=== PATIENT | female | born 1985 | race American Indian/Alaskan Native ===

== ENCOUNTER 2017-05-02 06:27 | Emergency (ER) | payer SELFPAY ==
[2017-05-02 07:24] LABS: Basophils % (Auto) 0.2 % (0.0-1.8); Eosinophils % (Auto) 0.4 % (0.0-4.3); Hemoglobin 13.8 gm/dl (10.1-14.3); Mean Corpuscular HGB Conc 33 % (30-34); Mean Corpuscular Hemoglobin 30 pg (28-32); Mean Corpuscular Volume 91 fl (79-97); Platelet Count 304 K/mm3 (140-440); Red Blood Count 4.64 M/mm3 (3.65-5.03); Red Cell Distribution Width 12.5 % (13.2-15.2); White Blood Count 8.3 K/mm3 (4.5-11.0)
[2017-05-02 07:31] LABS: Bilirubin,Urine NEG (Negative); Blood,Urine LG (Negative); Ketones,Urine TR mg/dL (Negative); Leukocyte Esterase,Urine TR (Negative); Mucus,Urine 3+ /HPF; Nitrite,Urine NEG (Negative)
[2017-05-02 07:32] LABS: RBC,Urine > 182.0 /HPF (0.0-6.0)
[2017-05-02 07:37] LABS: Alanine Aminotransferase 11 units/L (7-56); Albumin 4.3 g/dL (3.9-5); Albumin/Globulin Ratio 1.5 %; Alkaline Phosphatase 57 units/L (35-129); Anion Gap 16 mmol/L; BUN/Creatinine Ratio 8.88; Blood Urea Nitrogen 8 mg/dL (7-17); Calcium 9.2 mg/dL (8.4-10.2); Carbon Dioxide 29 mmol/L (22-30); Chloride 101.6 mmol/L (98-107); Glucose 107 mg/dL (65-100); Lipase 22 units/L (13-60); Potassium 4.7 mmol/L (3.6-5.0); Sodium 142 mmol/L (137-145); Total Protein 7.2 g/dL (6.3-8.2)
[2017-05-02] MEDS ORDERED: ZOFRAN ONE (08:16)
[2017-05-02] MEDS ORDERED: ZOFRAN IV ONE (09:00)
[2017-05-02] MEDS ORDERED: TORADOL IV ONE (10:17)
[2017-05-02] MEDS ORDERED: NACL 0.9% 1000 ML 1,000 ML IV ONE (10:17)
[2017-05-02] MEDS ORDERED: MORPHINE IV ONE (10:17)
--- NOTE | 2017-05-02 10:20 | Emergency Department Report ---
<DAR KIMBALL - Last Filed: 05/02/17 11:26> ED Abdominal Pain HPI - General Chief Complaint: Abdominal Pain Stated Complaint: LOWER ABD AND BACK PAIN Time Seen by Provider: 05/02/17 10:08 - Related Data Previous Rx's Medication Instructions Recorded Last Taken Type Bacitracin/Polymyxin B Sulfate 28 gm TP BID #1 oint...g. 07/20/16 Unknown Rx [[facility] Bacitracin Ointmnt] Cephalexin [Keflex] 500 mg PO Q12HR #14 cap 07/20/16 Unknown Rx Ibuprofen [Motrin] 600 mg PO Q8H PRN #20 tablet 07/20/16 Unknown Rx Ciprofloxacin HCl [Ciprofloxacin 500 mg PO Q12H #10 tab 05/02/17 Unknown Rx TAB] Ondansetron [Zofran Odt] 4 mg PO Q6H PRN #10 tab.rapdis 05/02/17 Unknown Rx traMADol [Ultram] 50 mg PO Q6HR PRN #10 tablet 05/02/17 Unknown Rx Allergies Allergy/AdvReac Type Severity Reaction Status Date / Time codeine Allergy Unknown Verified 05/02/17 06:37 ED Review of Systems ROS: Stated complaint: LOWER ABD AND BACK PAIN Other details as noted in HPI ED Past Medical Hx - Medications Home Medications: Home Medications Medication Instructions Recorded Confirmed Last Taken Type Bacitracin/Polymyxin B Sulfate 28 gm TP BID #1 oint...g. 07/20/16 Unknown Rx [[facility] Bacitracin Ointm[facility]] Cephalexin [Keflex] 500 mg PO Q12HR #14 cap 07/20/16 Unknown Rx Ibuprofen [Motrin] 600 mg PO Q8H PRN #20 tablet 07/20/16 Unknown Rx Ciprofloxacin HCl [Ciprofloxacin 500 mg PO Q12H #10 tab 05/02/17 Unknown Rx TAB] Ondansetron [Zofran Odt] 4 mg PO Q6H PRN #10 tab.rapdis 05/02/17 Unknown Rx traMADol [Ultram] 50 mg PO Q6HR PRN #10 tablet 05/02/17 Unknown Rx ED Course Vital Signs 05/02/17 05/02/17 05/02/17 06:37 07:50 10:52 Temperature 98 F Pulse Rate 82 Respiratory 18 18 20 Rate Blood Pressure 134/68 O2 Sat by Pulse 100 100 Oximetry 05/02/17 05/02/17 05/02/17 10:53 11:22 11:23 Temperature Pulse Rate Respiratory 18 16 16 Rate Blood Pressure O2 Sat by Pulse Oximetry ED Medical Decision Making - Lab Data Result diagrams: 05/02/17 06:56 05/02/17 06:56 - Medical Decision Making I have seen and examined this patient myself. 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 Itz Kimball Critical care attestation.: If time is entered above; I have spent that time in minutes in the direct care of this critically ill patient, excluding procedure time. ED Disposition Clinical Impression: Nephrolithiasis, Hematuria, UTI (urinary tract infection) Disposition: - TO HOME OR SELFCARE Condition: Stable Instructions: Abdominal Pain (ED) Additional Instructions: rest fluids- water water water Call Dr Isabel on Thursday AM You will need to follow up as well with urology for small nonobstructing kidney stones. You had constipation evident on your scan- miralax today over the counter meds as ordered motrin over the counter can be used for mild pain use ultram for severe pain only Prescriptions: Ciprofloxacin HCl [Ciprofloxacin TAB] 500 mg PO Q12H #10 tab Ondansetron [Zofran Odt] 4 mg PO Q6H PRN #10 tab.rapdis PRN Reason: Nausea traMADol [Ultram] 50 mg PO Q6HR PRN #10 tablet PRN Reason: Pain Referrals: PRIMARY CARE, [Primary Care Provider] - 3-5 Days ROBERT RAIN MD [Staff Physician] - 3-5 Days WOOD MASSEY MD [Staff Physician] - 3-5 Days VI TRAMMELL MD [Staff Physician] - 3-5 Days <CHRIS WOODS - Last Filed: 05/02/17 12:51> ED Abdominal Pain HPI - General Source: patient Mode of arrival: Ambulatory Limitations: No Limitations ED Review of Systems Comment: All other systems reviewed and negative Constitutional: no symptoms reported, see HPI. denies: chills, diaphoresis, fever Eyes: as per HPI. denies: eye pain ENT: as per HPI. denies: ear pain, throat pain Respiratory: no symptoms reported, see HPI. denies: cough, orthopnea Cardiovascular: as per HPI. denies: chest pain, palpitations, dyspnea on exertion, orthopnea Endocrine: no symptoms reported, see HPI. denies: excessive sweating, flushing Gastrointestinal: as per HPI, abdominal pain, nausea, vomiting. denies: diarrhea (n bm today. no blood), constipation, hematemesis, melena Genitourinary: as per HPI, other (lmp 2 w ago; tubal). denies: urgency, dysuria , frequency, hematuria, discharge, abnormal menses, dyspareunia Musculoskeletal: as per HPI, back pain, other (l flank pain) Skin: as per HPI. denies: rash, lesions Neurological: as per HPI. denies: headache, weakness Psychiatric: as per HPI. denies: anxiety, depression Hematological/Lymphatic: as per HPI. denies: easy bleeding ED Past Medical Hx - Past Medical History Previous Medical History?: Yes Hx Headaches / Migraines: Yes Additional medical history: Arthritis, Back Pain - Surgical History Past Surgical History?: Yes Additional Surgical History: C-Sec x 3 - Family History Family history: no significant - Social History Smoking Status: Never Smoker Substance Use Type: Alcohol ED Physical Exam - General Limitations: No Limitations General appearance: alert - Head Head exam: Present: atraumatic - Eye Eye exam: Present: PERRL - ENT ENT exam: Present: normal exam, mucous membranes moist, normal external ear exam - Neck Neck exam: Present: normal inspection, full ROM. Absent: tenderness, meningismus, lymphadenopathy, thyromegaly - Respiratory Respiratory exam: Present: normal lung sounds bilaterally. Absent: respiratory distress - Cardiovascular Cardiovascular Exam: Present: regular rate, normal rhythm - GI/Abdominal GI/Abdominal exam: Present: soft, tenderness (llq), normal bowel sounds, other ( acute onset pain this am l back to llq). Absent: distended, guarding, rebound, rigid, diminished bowel sounds, hyperactive bowel sounds, hypoactive bowel sounds, organomegaly, mass, bruit, pulsatile mass, hernia - Expanded GI/Abdominal Exam Expanded GI/Abdominal exam: Absent: psoas sign, obturator sign, heel tap sign, Temple's sign, Rovsing's sign, tenderness at Mcburney's Point, ascites - Rectal Rectal exam: Present: deferred - External exam: Present: normal external exam - Extremities Exam Extremities exam: Present: normal inspection, full ROM - Back Exam Back exam: Present: normal inspection, full ROM, CVA tenderness (L), other (not back pain that she normally has. never had anything like this). Absent: tenderness, CVA tenderness (R), muscle spasm, paraspinal tenderness, vertebral tenderness - Neurological Exam Neurological exam: Present: alert, oriented X3, CN II-XII intact, normal gait, reflexes normal - Psychiatric Psychiatric exam: Present: normal affect, normal mood. Absent: depressed, agitated - Skin Skin exam: Present: warm, dry, intact. Absent: normal color, rash ED Course - Reevaluation(s) Reevaluation #1: 05/02/17 to er w acute onset l flank pain this am no dysuria no fever n/v n bm this am lmp 2 w ago tubal no hx stones Reevaluation #2: 05/02/17 11:14 vss. reassessed. pain improved. ct pending 05/02/17 12:00 ct noted pt resting comfortably iv anbx infusing 1238 No co pain left flank but not as bad as prior. med infusing 05/02/17 12:[address] Rosales VSS no fever Will dc home w nonobstructing stone; urine culture p ED Medical Decision Making - Lab Data Result diagrams: 05/02/17 06:56 05/02/17 06:56 - Radiology Data Radiology results: report reviewed, image reviewed - Differential Diagnosis kidney stone; infected stone; pyelonephritis ED Disposition Is pt being admited?: No Does the pt Need Aspirin: No Time of Disposition: 12:44
[2017-05-02] MEDS ORDERED: ROCEPHIN 1,000 MG in NACL 0.9% 50 ML IV ONE (10:31)
[2017-05-02] MEDS ORDERED: ROCEPHIN/NS 1 GM/50 ML 1 GM/50 ML BAG IV SCH (11:00)
--- NOTE | 2017-05-02 12:02 | Cat Scan Report ---
CT scan of abdomen and pelvis without IV contrast: History: Left flank pain. Findings: Normal lung bases. No pleural or pericardial effusion. Normal liver spleen pancreas and gallbladder. There is nonobstructing 2 mm calculus noted right kidney. No calculi left kidney. There is mild dilatation noted of the left ureter. There is 3 mm radiopaque density identified in the bladder at the region of the left UV junction, probably a calculus. No free intraperitoneal fluid or. No evidence of adenopathy. Gaseous colon with moderate volume stool throughout colon. Normal appendix. No evidence of diverticulitis or diverticulosis. Impression: Radiopaque density in the bladder in the region of the left UV junction probably a calculus in the distal end of the left ureter. Small nonobstructing calculus right kidney. Gaseous colon with moderate volume stool in colon
[2017-05-02] MEDS ORDERED: ULTRAM PO ONE (12:42)
[2017-05-02] MEDS ORDERED: ZOFRAN ODT PO ONE (12:43)
[2017-05-02] MEDS ORDERED: FLOMAX PO ONE (13:00)
[2017-05-02 14:06] VITALS: BP 109/68
== END 2017-05-02 14:15 | disposition home or self-care (01) ==
LOC: ED 06:27
DX: N39.0 Urinary tract infection, site not specified (principal); N20.0 Calculus of kidney; R31.9 Hematuria, unspecified; Z88.5 Allergy status to narcotic agent
CPT/HCPCS: 36415; 74176; 80053; 81001; 81025; 83690; 84703; 85025; 96361; 96365; 96375; 99284; J0696; J1885; J2270; J2405; J7030; Q0162